=== PATIENT | female | born 1985 | race Caucasian/White ===

== ENCOUNTER 2021-06-04 16:27 | Emergency (ER) | payer BC ==
[2021-06-04 20:27] LABS: Absolute Lymphocytes (CBC) 2.6 K/uL (0.7-4.9); Hematocrit 39.3 % (36.0-45.0); Lymphocytes % 28.1 % (15.3-44.8); MPV 9.6 fL (7.6-11.3); RBC Red Blood Cell Count 4.42 M/uL (3.86-4.86)
[2021-06-04 20:34] LABS: Albumin 3.6 g/dL (3.4-5.0); Bilirubin Direct 0.1 mg/dL (0-0.2); Bilirubin Total 0.3 mg/dL (0.2-1.0); Protein, Total 7.3 g/dL (6.4-8.2)
[2021-06-04] MEDS ORDERED: ONDANSETRON 4 MG/2 ML VIAL ONE (20:43)
[2021-06-04] MEDS ORDERED: MORPHINE 4 MG/ML SYR ONE (20:43)
[2021-06-04] MEDS ORDERED: NA CHLORIDE 0.9% 1,000 ML ONE (20:43)
--- NOTE | 2021-06-04 20:46 | RAD REPORT ---
EXAM DESCRIPTION: CTAbdomen Pelvis W Contrast - 06/04/2021 8:27 pm CLINICAL HISTORY: Abdominal pain. ABD PAIN COMPARISON: No comparisons TECHNIQUE: Biphasic CT imaging of the abdomen and pelvis was performed with 100 ml non-ionic IV cont rast. All CT scans are performed using dose optimization technique as appropriate and may include automated exposure control or mA/KV adjustment according to patient size. FINDINGS: The lung bases are clear. The liver, spleen, pancreas, adrenal glands and kidneys are within normal limits. No bowel obstruction, free air, free fluid or abscess. The appendix is normal. No evidence of signi ficant lymphadenopathy. No suspicious bony findings. IMPRESSION: No acute intra-abdominal or pelvic finding.
--- NOTE | 2021-06-04 21:33 | RAD REPORT ---
EXAM DESCRIPTION: US - Abdomen Exam Limited - 06/04/2021 9:24 pm CLINICAL HISTORY: r/o GB;Abd pain Right upper quadrant abdominal pain COMPARISON: Abdomen Exam Complete dated 01/31/2021 FINDINGS: The gallbladder demonstrates no gallstones. No pericholecystic fluid or gallbladder wall t hickening. The common bile duct is normal measuring 3 mm. The liver demonstrates no findings of intrahepatic biliary dilatation. IMPRESSION: Unremarkable examination.
--- NOTE | 2021-06-04 21:40 | EDPHYS ---
Physician Documentation [facility] Name: Trish Wiggins Age: 36 yrs Sex: Female : 1985 Arrival Date: 06/04/2021 Time: 16:30 Bed 7 Private MD: RONEL Physician Timoteo Stein HPI: 06/04 20:38 This 36 yrs old Female presents to ER via Wheelchair with complaints of jr8 Abdominal Pain. 20:38 The patient presents with abdominal pain in the right upper quadrant. Onset: The jr8 symptoms/episode began/occurred gradually, 2 month(s) ago. The symptoms radiate to right back. Associated signs and symptoms: Pertinent positives: diarrhea, nausea. The symptoms are described as stabbing. Modifying factors: The symptoms are alleviated by nothing, the symptoms are aggravated by food. Severity of pain: At its worst the pain was moderate in the emergency department the pain is unchanged. The patient has not experienced similar symptoms in the past. The patient has not recently seen a physician. Patient stated that she has had this for some time. Was put on Tylenol # 3, Bentyl, and Zofran without help. Had Abdominal US in past but was never given results. Continues to have problems and wanted reevaluation . 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 Flu vaccine is up to date. - Social history:: Smoking status: Patient denies any tobacco usage or history of. Patient/guardian denies using alcohol, street drugs, IV drugs. ROS: 20:38 Eyes: Negative for injury, pain, redness, and discharge, ENT: Negative for injury, jr8 pain, and discharge, Neck: Negative for injury, pain, and swelling, Cardiovascular: Negative for chest pain, palpitations, and edema, Respiratory: Negative for shortness of breath, cough, wheezing, and pleuritic chest pain, Back: Negative for injury and pain, MS/Extremity: Negative for injury and deformity, Skin: Negative for injury, rash, and discoloration, Neuro: Negative for headache, weakness, numbness, tingling, and seizure. 20:38 Abdomen/GI: Positive for abdominal pain, nausea, diarrhea. Exam: 20:38 Constitutional: This is a well developed, well nourished patient who is awake, alert, jr8 and in no acute distress. Cardiovascular: Regular rate and rhythm with a normal S1 and S2. No gallops, murmurs, or rubs. Normal PMI, no JVD. No pulse deficits. Respiratory: Lungs have equal breath sounds bilaterally, clear to auscultation and percussion. No rales, rhonchi or wheezes noted. No increased work of breathing, no retractions or nasal flaring. Back: No spinal tenderness. No costovertebral tenderness. Full range of motion. Skin: Warm, dry with normal turgor. Normal color with no rashes, no lesions, and no evidence of cellulitis. MS/ Extremity: Pulses equal, no cyanosis. Neurovascular intact. Full, normal range of motion. Neuro: Awake and alert, GCS 15, oriented to person, place, time, and situation. Cranial nerves II-XII grossly intact. Motor strength 5/5 in all extremities. Sensory grossly intact. Cerebellar exam normal. Normal gait. 20:38 Abdomen/GI: Inspection: abdomen appears normal, Bowel sounds: active, all quadrants, Palpation: soft, in all quadrants, moderate abdominal tenderness, in the anterior aspect of right lateral abdomen and right upper quadrant, mass, is not appreciated, rebound tenderness, is not appreciated, voluntary guarding, is not appreciated, involuntary guarding, is not appreciated, no appreciated organomegaly, Indicators: McBurney's point is not tender, Pan's sign is positive, Liver: tenderness, is not appreciated. Vital Signs: 16:30 BP 144 / 97; Pulse 109; Resp 18 S; Pulse Ox 99% on R/A; ca1 16:43 BP 142 / 95; Pulse 72; Resp 18 S; Temp 98.6(O); Pulse Ox 99% on R/A; Weight 61.69 kg; ca1 Height 5 ft. 0 in. (152.40 cm) (R); Pain 9/10; 19:44 BP 128 / 77; Pulse 72; Resp 16 S; Pulse Ox 98% on R/A; ad5 21:00 BP 124 / 74; Pulse 76; Resp 16; Pulse Ox 98% on R/A; jb4 16:43 Body Mass Index 26.56 (61.69 kg, 152.40 cm) ca1 16:30 Pt V/S at registration ca1 MDM: 19:49 Patient medically screened. jr8 21:38 Data reviewed: vital signs, nurses notes, lab test result(s), radiologic studies, CT jr8 scan, ultrasound. Data interpreted: Pulse oximetry: on room air is 98 %. Interpretation: normal. Counseling: I had a detailed discussion with the patient and/or guardian regarding: the historical points, exam findings, and any diagnostic results supporting the discharge/admit diagnosis, lab results, radiology results, the need for outpatient follow up, a manager administrative, to return to the emergency department if symptoms worsen or persist or if there are any questions or concerns that arise at home. Special discussion: Based on the patient's Hx, exam, and Dx evaluation, there is no indication for emergent surgery or inpatient Tx. It is understood by the patient/guardian that if the Sx's persist or worsen they need to return immediately for re-evaluation. 06/04 19:49 Order name: Basic Metabolic Panel; Complete Time: 20:41 06/04 19:49 Order name: CBC with Diff; Complete Time: 20:41 06/04 19:49 Order name: Hepatic Function; Complete Time: 20:41 06/04 19:49 Order name: Lipase; Complete Time: 20:41 06/04 20:05 Order name: US Abdomen Limited; Complete Time: 21:38 06/04 20:05 Order name: CT Abd/Pelvis - IV Contrast Only; Complete Time: 21:03 06/04 19:49 Order name: IV Saline Lock; Complete Time: 20:15 06/04 19:49 Order name: Labs collected and sent; Complete Time: 20:15 Administered Medications: 22:15 Discontinued: NS 0.9% 1000 ml IV at 125 ml/hr continuous jb4 20:47 Drug: Zofran (Ondansetron) 4 mg Route: IVP; Site: right antecubital; jb4 21:30 Follow up: Response: No adverse reaction jb4 20:47 Drug: NS 0.9% 1000 ml Route: IV; Rate: 125 ml/hr; Site: right antecubital; jb4 21:45 Follow up: Response: No adverse reaction; IV Status: Order to discontinue infusion jb4 20:50 Drug: morphine 4 mg Route: IVP; Site: right antecubital; jb4 21:30 Follow up: Response: No adverse reaction; Marked relief of symptoms; Pain is decreased; jb4 RASS: Alert and Calm (0) Disposition: 06/05 07:02 Co-signature as Attending Physician, Timoteo Stein MD I agree with the assessment and echo plan of care. Disposition Summary: 06/04/21 21:39 Discharge Ordered Location: Home jr8 Problem: new jr8 Symptoms: have improved jr8 Condition: Stable jr8 Diagnosis - Abdominal pain, Generalized jr8 Followup: jr8 - With: Bryn Jasso MD - When: 2 - 3 days - Reason: Recheck today's complaints, Continuance of care, Re-evaluation by your physician Discharge Instructions: - Discharge Summary Sheet jr8 - Abdominal Pain, Adult jr8 - Pain Without a Known Cause jr8 Forms: - Medication Reconciliation Form jr8 - Thank You Letter jr8 - Antibiotic Education jr8 - Prescription Opioid Use jr8 Signatures: Dispatcher [employer] EDTimoteo Bojorquez MD MD cha Roszak, Josh, PA PA jr8 Kishan Erazo RN RN jb4 Sun Armstrong RN RN ca1 Corrections: (The following items were deleted from the chart) 06/04 20:16 20:05 Urine Test ordered. jr8 jb4 21:42 20:05 Urine Dipstick-Ancillary ordered. jr8 jb4
--- NOTE | 2021-06-04 21:40 | ER ---
Nurse's Notes [facility] Name: Trish Wiggins Age: 36 yrs Sex: Female : 1985 Arrival Date: 06/04/2021 Time: 16:30 Bed 7 Private MD: Diagnosis: Abdominal pain, Generalized Presentation: 06/04 16:43 Chief complaint: Patient states: I feel really dizzy and I have this burning sensation ca1 on my epigastric region, the RUQ hurts all the way to the back. Been having this pain over a month now, today, it hurts so bad I passed out when I was getting out of the car just now. Mother: when she fell, she went face down. Reports pain on face, R knee and R hand from the fall. N/V on and off for about a month. Coronavirus screen: Client denies travel out of the [place] in the last 14 days. nausea, vomiting. Client presents with at least one sign or symptom that may indicate coronavirus-19. Standard/surgical mask placed on the client. Provider contacted for isolation considerations. Ebola Screen: Patient negative for fever greater than or equal to 101.5 degrees Fahrenheit, and additional compatible Ebola Virus Disease symptoms Patient denies exposure to infectious person. Patient denies travel to an Ebola-affected area in the 21 days before illness onset. No symptoms or risks identified at this time. Initial Sepsis Screen: Does the patient meet any 2 criteria? No. Patient's initial sepsis screen is negative. Does the patient have a suspected source of infection? No. Patient's initial sepsis screen is negative. Risk Assessment: Do you want to hurt yourself or someone else? Patient reports no desire to harm self or others. Onset of symptoms was June 04, 2021. 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 Flu vaccine is up to date. - Social history:: Smoking status: Patient denies any tobacco usage or history of. Patient/guardian denies using alcohol, street drugs, IV drugs. Screenin:45 Abuse screen: Denies threats or abuse. Nutritional screening: No deficits noted. jb4 Tuberculosis screening: No symptoms or risk factors identified. Fall Risk None identified. Assessment: 19:45 General: Appears in no apparent distress. comfortable, Behavior is calm, cooperative, jb4 appropriate for age. Pain: Complains of pain in posterior aspect of right lateral abdomen Pain radiates to anterior aspect of right lateral abdomen Pain currently is 8 out of 10 on a pain scale. Neuro: Level of Consciousness is awake, alert, obeys commands, Oriented to person, place, time, situation. Cardiovascular: Patient's skin is warm and dry. Respiratory: Airway is patent Respiratory effort is even, unlabored, Respiratory pattern is regular, symmetrical. GI: No signs and/or symptoms were reported involving the gastrointestinal system. : No signs and/or symptoms were reported regarding the genitourinary system. EENT: No signs and/or symptoms were reported regarding the EENT system. Derm: Skin is intact, Skin is pink, warm \T\ dry. Musculoskeletal: Circulation, motion, and sensation intact. Range of motion:. 21:00 Reassessment: Patient appears in no apparent distress at this time. Patient and/or jb4 family updated on plan of care and expected duration. Pain level reassessed. Patient is alert, oriented x 3, equal unlabored respirations, skin warm/dry/pink. Patient states feeling better. 22:12 Reassessment: Patient appears in no apparent distress at this time. Patient and/or jb4 family updated on plan of care and expected duration. Pain level reassessed. Patient is alert, oriented x 3, equal unlabored respirations, skin warm/dry/pink. Vital Signs: 16:30 BP 144 / 97; Pulse 109; Resp 18 S; Pulse Ox 99% on R/A; ca1 16:43 BP 142 / 95; Pulse 72; Resp 18 S; Temp 98.6(O); Pulse Ox 99% on R/A; Weight 61.69 kg; ca1 Height 5 ft. 0 in. (152.40 cm) (R); Pain 9/10; 19:44 BP 128 / 77; Pulse 72; Resp 16 S; Pulse Ox 98% on R/A; ad5 21:00 BP 124 / 74; Pulse 76; Resp 16; Pulse Ox 98% on R/A; jb4 16:43 Body Mass Index 26.56 (61.69 kg, 152.40 cm) ca1 16:30 Pt V/S at registration ca1 ED Course: 16:30 Patient arrived in ED. mr 16:48 Triage completed. ca1 16:48 Arm band placed on right wrist. ca1 19:40 Kishan Erazo, RN is Primary Nurse. jb4 19:45 Patient has correct armband on for positive identification. Bed in low position. Call jb4 light in reach. Side rails up X 1. Pulse ox on. NIBP on. 19:49 Cornelius Barlow PA is PHCP. jr8 19:49 Timoteo Stein MD is Attending Physician. jr8 20:10 Initial lab(s) drawn, by me, sent to lab. Inserted saline lock: 18 gauge in right jb4 forearm, using aseptic technique. Blood collected. 20:27 CT Abd/Pelvis - IV Contrast Only In Process Unspecified. EDMS 21:24 US Abdomen Limited In Process Unspecified. EDMS 21:39 Bryn Jasso MD is Referral Physician. jr8 21:45 No provider procedures requiring assistance completed. IV discontinued, intact, jb4 bleeding controlled, No redness/swelling at site. Pressure dressing applied. Administered Medications: 22:15 Discontinued: NS 0.9% 1000 ml IV at 125 ml/hr continuous jb4 20:47 Drug: Zofran (Ondansetron) 4 mg Route: IVP; Site: right antecubital; jb4 21:30 Follow up: Response: No adverse reaction jb4 20:47 Drug: NS 0.9% 1000 ml Route: IV; Rate: 125 ml/hr; Site: right antecubital; jb4 21:45 Follow up: Response: No adverse reaction; IV Status: Order to discontinue infusion jb4 20:50 Drug: morphine 4 mg Route: IVP; Site: right antecubital; jb4 21:30 Follow up: Response: No adverse reaction; Marked relief of symptoms; Pain is decreased; jb4 RASS: Alert and Calm (0) Outcome: 21:39 Discharge ordered by . jr8 21:45 Discharged to home ambulatory, with family. jb4 21:45 Condition: stable 21:45 Discharge instructions given to patient, Instructed on discharge instructions, follow up and referral plans. Demonstrated understanding of instructions, follow-up care. 22:15 Patient left the ED. jb4 Signatures: Dispatcher [employer] Colleen Bowen Josh, PA PA jr8 Kishan Erazo RN RN jb4 Sun Armstrong RN RN ca1 John Guerrero
[2021-06-04 22:41] VITALS: TEMP 98.6
[2021-06-04 22:47] VITALS: O2SAT 98
[2021-06-04 22:49] VITALS: BP 124/74
== END 2021-06-04 22:15 | disposition home or self-care (01) ==
LOC: ER 16:27
DX: R10.84 Generalized abdominal pain (principal); Z88.0 Allergy status to penicillin
CPT/HCPCS: 96361; 85025; 80048; 36415; 80076; 83690; 74177; 76705; 96375; 96374; 99284; Q9967; J7030; J2405